=== PATIENT | female | born 1985 | race Caucasian/White ===

== ENCOUNTER 2024-04-13 09:44 | Emergency (ER) | payer BC, SELFPAY ==
[2024-04-13 09:45] VITALS: BP 146/93; PULSE 119; RESP 16; TEMP 36.7; O2SAT 100; BMI 25.0
--- NOTE | 2024-04-13 10:02 | EX.ED.DYSGE1 ---
HPI History of Present Illness Chief Complaint: Nausea/Vomiting Informant: patient Narrative Narrative: 38-year-old female presenting to the emergency room with nausea and vomiting. Patient states that on Sunday and she developed a febrile illness which caused her to have vomiting. She notes that coinciding with this infection she ran out of her dogs Xanax. She states that the dog Xanax pills were 2 mg and she was taking a little bit of it throughout the day. She wonders now if she is having more withdrawal. She notes insomnia. She states that she is upset and embarrassed. She denies any diarrhea. No rashes. No further fever. She felt some chest tightness last night. She notes her family has been going through a lot recently. She does not expound. No suicidal homicidal ideation. She also utilizes cannabis on a daily basis states she takes a small gummy daily. No history of cannabis hyperemesis syndrome PFSH PFSH Medical History no medical history Home Medications ?Medication ?Instructions ?Recorded ?Last Taken ?Type hydroxyzine pamoate 25 mg capsule 50 mg (2 x 25 mg) PO TID PRN PRN 04/13/24 Unknown Rx Anxiety #30 CAPSULES ondansetron 4 mg disintegrating 4 mg PO Q6H PRN PRN Nausea #15 tabs 04/13/24 Unknown Rx tablet Surgical History (Updated 04/13/24 @ 10:[address] Christ Liu DO) Hx of abdominoplasty H/O breast augmentation Surgical History no surgical history Social History Smoking Status: Never smoker ROS ROS ED ROS Narrative Insomnia Constitutional Constitutional ED: Denies chills or weight loss Eyes Eyes: Denies change in vision or diplopia ENT ENT ED: Denies ear pain, rhinorrhea or sore throat Cardiovascular Cardiovascular: Denies chest pain, orthopnea, palpitations or racing heartbeat Respiratory/Chest Respiratory/Chest: Denies cough, dyspnea or orthopnea Gastrointestinal Gastrointestinal: Reports nausea and vomiting; Denies abdominal pain or diarrhea Genitourinary Genitourinary ED: Denies dysuria, hematuria or urinary frequency Musculoskeletal Musculoskeletal: Denies arthralgias or myalgias Integumentary Denies abscess or rash Neurologic Neurologic: Denies headache(s) or weakness Psychiatric Psychiatric: Reports anxiety; Denies depression, suicidal ideation or suicidal thoughts Endocrine Endocrinology: Denies polydipsia, polyphagia or polyuria Allergic/Immunologic Allergic/Immunologic ED: Denies mouth swelling, tongue swelling or urticaria EXAM Physical Exam Const Vital Signs: 04/13/24 09:45 Temperature 98.1 F Temperature Source Temporal Pulse Rate 119 H Respiratory Rate 16 Blood Pressure 146/93 H Blood Pressure Mean 110 Pulse Ox 100 Oxygen Delivery Method Room Air MDM MDM MDM Narrative Medical decision making narrative: Differential diagnosis includes but not limited to viral syndrome benzodiazepine withdrawal cannabis hyperemesis syndrome dehydration electrolyte abnormalities pancreatitis biliary colic. EKG shows a normal sinus rhythm with a rate of 76 bpm. My independent interpretation of the chest x-ray is no acute process. Basic blood work was obtained shows a white count 7.3 hemoglobin 13.8. BMP with a glucose of 113 CO2 of 20.4. Normal LFTs normal lipase. is negative. Urine shows 150 ketones. Patient received IV fluids as well as Zofran. Clinically I think that the patient's symptoms are related to benzodiazepine withdrawal. There can be a mixed component with a viral illness as well. Recommending that she stay away from benzodiazepines. We can use some hydroxyzine to help her sleep and for anxiety. I can write for Zofran. Would recommend PCP or psychiatry follow-up to discuss her anxiety. Would recommend oral hydration. I also advised her to refrain from any cannabis use to avoid cannabis hyperemesis syndrome. History & Record Review Discussion w/independent historian: Patient Lab Data Attestation: I reviewed the patient's lab results. Labs: Laboratory Results - last 24 hr 04/13/24 10:19 WBC 7.3 RBC 4.39 Hgb 13.8 Hct 39.5 MCV 90.0 MCH 31.4 MCHC 34.9 RDW Std Deviation 38.5 RDW Coeff of All 11.8 Plt Count 206 MPV 11.1 Immature Gran % (Auto) 0.100 Neut % (Auto) 80.8 H Lymph % (Auto) 12.7 L [place] % (Auto) 5.9 Eos % (Auto) 0.1 Baso % (Auto) 0.4 Absolute Neuts (auto) 5.9 Absolute Lymphs (auto) 0.92 Nucleated RBC % 0 Sodium 136 Potassium 3.8 Chloride 102 Carbon Dioxide 20.4 L Anion Gap 14 BUN 9 Creatinine 0.80 Estim Creat Clear Calc 85.80 Est GFR (MDRD) Non-Af 96 BUN/Creatinine Ratio 11.6 Glucose 113 H Calcium 8.8 Total Bilirubin 0.74 Direct Bilirubin 0.34 H AST 15 ALT 12 Alkaline Phosphatase 51 Total Protein 6.7 Albumin 4.4 Globulin 2.3 Lipase 25 Serum , Qual NEGATIVE Urine Color Yellow Urine Clarity Clear Urine pH 6.0 Ur Specific Maria Stein 1.025 Urine Protein 30 H Urine Glucose (UA) Normal Urine Ketones 150 A* Urine Occult Blood Negative Urine Nitrite Negative Urine Bilirubin Negative Urine Urobilinogen Normal Ur Leukocyte Esterase Negative Urine RBC 0 SEEN Urine WBC 0 SEEN Ur Squamous Epith Cells 5-10 SEEN Urine Bacteria RARE Urine Mucus 1+ Radiography Diagnostic Testing: Clinical Impression(s) from Imaging Studies Chest X-Ray 04/13/24 11:06 IMPRESSION: NEGATIVE CHEST. Reading Location: [facility] EKG Initial EKG: Attestation: I personally reviewed and interpreted this EKG as follows: Comments: Normal sinus rhythm ventricular rate of [address] segments. Discharge Plan Triage Chief Complaint: Nausea/Vomiting ED Provider: Christ Liu Dx/Rx/DC Orders Clinical Impression: Vomiting, Anxiety, Acute dehydration, Benzodiazepine withdrawal Instructions: Anxiety Disorders Tx, ED Vomiting (Adult), ED Benzodiazepine Withdrawal Prescriptions: New ondansetron 4 mg tablet,disintegrating 4 mg PO Q6H PRN PRN (Reason: Nausea) Qty: 15 0RF hydroxyzine pamoate 25 mg capsule 50 mg PO TID PRN PRN (Reason: Anxiety) Qty: 30 0RF Primary Care Provider: Care Physician,No Primary Referrals: Shahid Sawyer MD [Med Staff - Security Incident Response Engineer] - (for primary care) Levi Lugo DO [Med Staff - Security Incident Response Engineer] - (for psychiatry) Care Physician,No Primary [Primary Care Provider] - [facility] [Non-Staff] - (for detox assistance) Activity Restrictions/Additional Instructions: I would avoid taking any type of benzodiazepine (Xanax, Ativan) in the future or to get through your withdrawal. I would avoid any cannabis ingestion as it can worsen your vomiting. I would recommend following up with primary care psychiatry to discuss your anxiety Print Language: Haitian Disposition Disposition: Home, Self Care
[2024-04-13] MEDS: Ondansetron 4 MG/2 ML Vial IV (10:15)
[2024-04-13] MEDS: 0.9% Normal Saline (1000mL) 1,000 ML 999 ML IV (10:15)
[2024-04-13 10:26] LABS: White Blood Cells 0 SEEN /hpf (0-5)
[2024-04-13 10:30] LABS: Absolute Lymphocyte Count 0.92 X10^3/uL (0.83-4.51); Absolute Neutrophil Count 5.9 X10^3/uL (2.0-7.7); Basophil# 0.03 X10^3/uL; Basophil% 0.4 % (0-1); Color, Urine Yellow (Yellow); Eosinophil# 0.01 X10^3/uL; Eosinophils% 0.1 % (0-5); Glucose, Dipstick Normal (Normal); Hematocrit 39.5 % (37-47); Hemoglobin 13.8 g/dL (12.0-15.0); Leukocyte Esterase-Dipstick Negative /ul (Negative); Lymphocyte # 0.92 X10^3/ul (0.83-4.51); Lymphocyte % 12.7 % (19-41); Mean Corp Hgb Conc 34.9 g/dL (32-36); Mean Corpuscular Hgb 31.4 pg (27.0-32.0); Mean Platelet Vol. 11.1 fl (6.2-12.0); Monocyte# 0.43 X10^3/uL; Monocyte% 5.9 % (0-10); NRBC Flagged by Analyzer 0 % (0-5); Neutrophil # 5.86 X10^3/uL (2.7-7.7); Neutrophil % 80.8 % (47-70); Nitrite-Dipstick Negative (Negative); Occult Blood-Urine Negative /ul (Negative); Platelet Count 206 K/mm3 (150-450); Protein-Dipstick 30 mg/dl (Negative); RBC Distribution Width CV 11.8 % (11.6-14.6); RBC Distribution Width SD 38.5 fl (35.1-43.9); Red Blood Count 4.39 M/mm3 (4.2-5.4); Specific Gravity, Urine 1.025 (1.002-1.030); Urine Bilirubin Dipstick Negative (Negative); Urine Clarity Clear (Clear); Urine Urobilinogen Normal (Normal); White Blood Count 7.3 K/mm3 (4.4-11.0)
[2024-04-13 10:31] LABS: Ketone-Dipstick 150 mg/dl (Negative)
--- NOTE | 2024-04-13 10:34 | ED.RN ---
Critical urine ketones 150. Dr. Liu notified.
[2024-04-13 10:36] LABS: Bacteria RARE /hpf (None Seen); Internal QC Validated? YES +Cl - CLEAR BKGD; Mucous, Urine 1+ /hpf (<or=2+); Pregnancy, Serum, hCG Quali. NEGATIVE Negative; Red Blood Cells-Urine 0 SEEN /hpf (0-5); Squamous Epithelial Cells - UA 5-10 SEEN /hpf (5-10)
[2024-04-13 10:55] LABS: AST(SGOT) 15 U/L (<=31); Alanine Aminotransfer ALT/SGPT 12 U/L (<=34); Albumin, Serum 4.4 g/dL (3.5-5.0); Alkaline Phosphatase 51 U/L (35-104); Anion Gap 14 (5-15); BUN 9 mg/dL (4-19); BUN/Creat Ratio 11.6 RATIO (10-20); Bilirubin, Direct 0.34 mg/dL (0.00-0.30); Calcium,Total 8.8 mg/dL (7.6-11.0); Carbon Dioxide 20.4 mmol/L (21.0-32.0); Chloride 102 mmol/L (98-108); EST Glomerular Filtration Rate 96 (>60); Globulin 2.3 g/dL (2.2-4.2); Glucose 113 mg/dL (70-99); Lipase 25 U/L (13-75); Potassium 3.8 mmol/L (3.3-5.1); Protein, Total 6.7 g/dL (5.9-8.4); Sodium Level 136 mmol/L (133-145); Total Bilirubin 0.74 mg/dL (0.00-1.30)
--- NOTE | 2024-04-13 11:06 | RAD_ITS ---
PROCEDURE: CHEST 1 VIEW (PORTABLE) REASON FOR EXAM: 38-year-old female, shortness of breath, flu like symptoms x3 days. TECHNIQUE: Frontal view of the chest. COMPARISON: None. FINDINGS: The heart size is normal. No focal consolidation, pleural effusion or pneumothorax. The bones are unremarkable. RAD/Chest 1 View (Portable) IMPRESSION: NEGATIVE CHEST. Reading Location: [id number]
--- NOTE | 2024-04-13 11:06 | EKG12_ITS ---
Test Reason : N/V/D Blood Pressure : */* mmHG Vent. Rate : 76 BPM Atrial Rate : 76 BPM P-R Int : 180 ms QRS Dur : 94 ms QT Int : 416 ms P-R-T Axes : 56 34 39 degrees QTcB Int : 468 ms Normal sinus rhythm Septal infarct , age undetermined Abnormal ECG Confirmed by Gonzalo Lombardo ([id number]), assistant film editor HARDIK CHACON ([id number]) on 04/14/2024 11:01:43 AM Referred By: Confirmed By: Gonzalo Lombardo
[2024-04-13] MEDS: hydrOXYzine PAM 25 MG Capsule 50 MG PO (12:05)
[2024-04-13] MEDS: Ondansetron ODT 4 MG Tablet PO (12:05)
[2024-04-13 12:25] VITALS: BP 123/70; PULSE 78; RESP 16; TEMP 37.1; O2SAT 99
== END 2024-04-13 12:37 | disposition home or self-care (01) ==
PROVIDERS: Emergency Provider Emergency Medicine; Visit Provider Emergency Medicine
DX: R11.2 Nausea with vomiting, unspecified (principal); F41.9 Anxiety disorder, unspecified; E86.0 Dehydration
CPT/HCPCS: 71045; 80048; 80076; 81001; 83690; 84703; 85025; 93005; 96374; 96376; 99284; A4216; J2405